=== PATIENT | male | born 1985 | race Caucasian/White ===

== ENCOUNTER 2020-11-30 07:18 | Inpatient (IN) ==
--- NOTE | 2020-11-30 07:57 | Communication Note ---
Date of Service: November 30, 2020 This patient was seen in concert with Dr. Smith and we discussed and agreed upon the history, physical, assessment, and plan. See attending's note for theodora colunga. Resident Activity Tracking Resident Involvement: Resident Care Provided Care Provided: Adult ED
[2020-11-30 08:19] LABS: Hematocrit (blood only) 20.6 % (42-52); Hemoglobin 5.5 g/dL (14.0-18.0); Mean Corpuscular Hemoglobin 17.8 pg (25-34); Mean Corpuscular Hgb Conc 26.7 g/dL (32-36); Mean Corpuscular Volume 66.7 fL (80-100); Mean Platelet Volume 8.7 fL (7.4-10.4); Platelet Count 372 K/uL (130-400); RDW Coefficient of Variation 18.5 % (11.5-14.5); RDW Standard Deviation 44.8 fL (36.4-46.3); Red Blood Count 3.09 M/uL (4.7-6.1); White Blood Count 4.57 K/uL (4.8-10.8)
[2020-11-30] MEDS ORDERED: SODIUM CHLORIDE 0.9% 250 ML IV PRN ×2 (08:21→10:39)
[2020-11-30 08:22] LABS: Alanine Aminotransferase 24 U/L (12-78); Albumin Level 3.8 gm/dl (3.4-5.0); Aspartate Aminotransferase 11 U/L (15-37); BUN Creatinine Ratio 15.4 (10-20); Blood Urea Nitrogen 13 mg/dl (7-18); Calcium 8.4 mg/dl (8.5-10.1); Carbon Dioxide 23 mmol/L (21-32); Chloride 112 mmol/L (98-107); Creatinine Clr Calc Pharmacy 183.8 ml/min; Est GFR (African American) 131.1 ml/min; Est GFR (Non-African American) 113.1 ml/min; Glucose 97 mg/dl (70-99); Potassium 4.2 mmol/L (3.5-5.1); Sodium 140 mmol/L (136-145)
[2020-11-30 08:27] LABS: Albumin Globulin Ratio 1.2 (0.9-2); Alkaline Phosphatase 85 U/L (45-117); Bilirubin,Total 0.5 mg/dl (0.2-1); Globulin 3.2 gm/dl (2.5-4.0); Troponin I < 0.015 ng/ml (0-0.045)
[2020-11-30 08:27] LABS: Basophils # (auto) 0.02 K/uL (0-0.2); Basophils % (auto) 0.4 %; Eosinophils # (auto) 0.41 K/uL (0-0.5); Hypochromasia Present; Immature Granulocytes # (auto) 0.02 K/uL (0.00-0.02); Immature Granulocytes % (auto) 0.4 %; Lymphocytes # (auto) 1.14 K/uL (1.2-3.4); Lymphocytes % (auto) 24.9 %; Microcytosis Present; Monocytes # (auto) 0.44 K/uL (0.11-0.59); Monocytes % (auto) 9.6 %; Neutrophils # (auto) 2.54 K/uL (1.4-6.5); Neutrophils % (auto) 55.7 %; Polychromasia 1+
--- NOTE | 2020-11-30 08:29 | Emergency Department Note ---
History of Present Illness General Chief complaint: Referred by Doctor Stated complaint: DR JUAREZ - BLOOD TRANSFUSION Time Seen by Provider: 11/30/20 07:34 Source: patient Mode of arrival: ambulatory Limitations: no limitations History of Present Illness Provider complaint: Anemia Maximum Pain Intensity: 5 This is a 35-year-old male who presents to the ED with a chief complaint of anemia. The patient states that he had blood work done yesterday and was called today to come to the hospital for a hemoglobin of 5.4. The patient has had recent exertional fatigue as well as dyspnea. He states that he has had the symptoms for a couple of weeks. Denied any chest pains, recent bleeding or b lood in his stools. No black stools. The patient states that he had Covid back in July. He also had a left flank pain a couple of weeks ago. The patient has no additional complaints at this time. Home Medications Medication Instructions Recorded Confirmed Type No Known Home Medications 11/30/20 11/30/20 History Allergies Allergy/AdvReac Type Severity Reaction Status Date / Time No Known Allergies Allergy Unverified 11/30/20 08:27 Past Med/Surg History Social History Smoking Status: Never smoker Preferred Language: Telugu Feels Safe at Home: Yes Review of Systems A total of 10 systems reviewed and were otherwise negative Physical Exam Vital Signs Vital Signs - 24 hr 11/30/20 07:23 11/30/20 08:26 11/30/20 08:30 Temperature 36.4 C L Temperature Source Temporal Artery Scan Pulse Rate 88 90 92 H Pulse Rate from SpO2 Sensor 90 92 H Respiratory Rate 18 24 28 H Respiratory Effort / Characteristics Non-Labored Spontaneous Respiratory Depth Normal Respiratory Pattern Regular Blood Pressure 152/92 H Blood Pressure Mean 112 Blood Pressure Position Sitting Pulse Oximetry 100 99 100 Oxygen Delivery Method Room Air Sepsis Recent Fever Within 48 Hours No Sepsis New/Unexplained Change in Mental Status N/A Sepsis Action Taken by Nursing No Action Required CONSTITUTIONAL/VITAL SIGNS: Reviewed / noted above. GENERAL: Non-toxic in appearance. INTEGUMENTARY: Warm, dry, and pale. HEAD: Normocephalic. EYES: without scleral icterus or trauma. ENT/OROPHARYNX: clear and moist. LYMPHADENOPATHY/NECK: Is supple without lymphadenopathy or meningismus. RESPIRATORY: Lungs clear and equal. CARDIOVASCULAR: Regular rate and rhythm. GI/ABDOMEN: Soft and nontender. No organomegaly or pulsatile mass. No rebound or guarding. Normal bowel sounds. EXTREMITIES: Warm and well perfused. BACK: No CVA tenderness. NEUROLOGICAL: Intact without focal deficits. PSYCHIATRIC: normal affect. MUSCULOSKELETAL: Normally developed with good muscle tone. RECTAL: Guaiac testing of stool is guaiac negative and light brown TRIAGE NURSING DOCUMENTATION REVIEWED. Course Administered Medications Discontinued Medications Ioversol (Optiray 320 150ml) 90 ml IV ONCE ONE Stop: 11/30/20 08:39 Last Admin: 11/30/20 08:39 Dose: 90 ml Documented by: [id number] Critical Care Time Critical Care Time: Yes Total Critical Care Time: 30 I have personally spent 30 minutes of critical care time in the direct management of this patient. This includes bedside care, interpretation of diagnostic studies, and testing, discussion with consultants, patient, and family members, and other required patient management activities. This 30 minutes is in excess of all separately billable procedures. Medical Decision Making Differential Diagnosis Differential includes acute coronary syndrome, myocardial infarction, CVA, TIA, anemia, infection, pneumonia, UTI, pyelonephritis, poor nutrition, dehydration, electrolyte disturbance,hypoglycemia. Medical Records Attestation: I reviewed the patient's medical records. Home Medications Current Medication List: was personally reviewed by me Laboratory Data Attestation: I reviewed the patient's lab results. Result diagrams: 11/30/20 07:42 11/30/20 07:50 Lab Results 11/30/20 11/30/20 11/30/20 Range/Units 07:42 07:42 07:50 WBC 4.57 L (4.8-10.8) K/uL RBC 3.09 L (4.7-6.1) M/uL Hgb 5.5 L* (14.0-18.0) g/dL Hct 20.6 L* (42-52) % MCV 66.7 L (80-100) fL MCH 17.8 L (25-34) pg MCHC 26.7 L (32-36) g/dL RDW Std Deviation 44.8 (36.4-46.3) fL RDW Coeff of Domonique 18.5 H (11.5-14.5) % Plt Count 372 (130-400) K/uL MPV 8.7 (7.4-10.4) fL Immature Gran % (Auto) 0.4 % Neut % (Auto) 55.7 % Lymph % (Auto) 24.9 % [place] % (Auto) 9.6 % Eos % (Auto) 9.0 % Baso % (Auto) 0.4 % Neut # (Auto) 2.54 (1.4-6.5) K/uL Lymph # (Auto) 1.14 L (1.2-3.4) K/uL [place] # (Auto) 0.44 (0.11-0.59) K/uL Eos # (Auto) 0.41 (0-0.5) K/uL Baso # (Auto) 0.02 (0-0.2) K/uL Immature Gran # (Auto) 0.02 (0.00-0.02) K/uL Polychromasia 1+ Hypochromasia Present Microcytosis Present Sodium (136-145) mmol/L Potassium (3.5-5.1) mmol/L Chloride (98-107) mmol/L Carbon Dioxide (21-32) mmol/L Anion Gap (3-11) BUN (7-18) mg/dl Creatinine (0.6-1.4) mg/dl Est Cr Clr Drug Dosing ml/min Est GFR ( Amer) ml/min Est GFR (Non-Af Amer) ml/min BUN/Creatinine Ratio (10-20) Glucose (70-99) mg/dl Calcium (8.5-10.1) mg/dl Total Bilirubin Cancelled Direct Bilirubin Cancelled AST Cancelled ALT Cancelled Alkaline Phosphatase Cancelled Troponin I Cancelled Total Protein Cancelled Albumin Cancelled Globulin (2.5-4.0) gm/dl Albumin/Globulin Ratio (0.9-2) COVID-19 Eval Order Blood Type O Positive Blood Type Recheck Antibody Screen NEGATIVE Crossmatch See Detail 11/30/20 11/30/20 11/30/20 Range/Units 07:50 08:46 08:52 WBC (4.8-10.8) K/uL RBC (4.7-6.1) M/uL Hgb (14.0-18.0) g/dL Hct (42-52) % MCV (80-100) fL MCH (25-34) pg MCHC (32-36) g/dL RDW Std Deviation (36.4-46.3) fL RDW Coeff of Domonique (11.5-14.5) % Plt Count (130-400) K/uL MPV (7.4-10.4) fL Immature Gran % (Auto) % Neut % (Auto) % Lymph % (Auto) % [place] % (Auto) % Eos % (Auto) % Baso % (Auto) % Neut # (Auto) (1.4-6.5) K/uL Lymph # (Auto) (1.2-3.4) K/uL [place] # (Auto) (0.11-0.59) K/uL Eos # (Auto) (0-0.5) K/uL Baso # (Auto) (0-0.2) K/uL Immature Gran # (Auto) (0.00-0.02) K/uL Polychromasia Hypochromasia Microcytosis Sodium 140 (136-145) mmol/L Potassium 4.2 (3.5-5.1) mmol/L Chloride 112 H (98-107) mmol/L Carbon Dioxide 23 (21-32) mmol/L Anion Gap 6.0 (3-11) BUN 13 (7-18) mg/dl Creatinine 0.86 (0.6-1.4) mg/dl Est Cr Clr Drug Dosing 183.8 ml/min Est GFR ( Amer) 131.1 ml/min Est GFR (Non-Af Amer) 113.1 ml/min BUN/Creatinine Ratio 15.4 (10-20) Glucose 97 (70-99) mg/dl Calcium 8.4 L (8.5-10.1) mg/dl Total Bilirubin 0.5 Direct Bilirubin AST 11 L ALT 24 Alkaline Phosphatase 85 Troponin I < 0.015 Total Protein 7.0 Albumin 3.8 Globulin 3.2 (2.5-4.0) gm/dl Albumin/Globulin Ratio 1.2 (0.9-2) COVID-19 Eval Order Covid19 at [facility] Blood Type Blood Type Recheck O Positive Antibody Screen Crossmatch Imaging Data Attestation: I personally reviewed and interpreted this imaging study as follows: My Impression: Chest x-ray: Per my interpretation is negative for acute disease Radiologist's Impression: Abdomen/Pelvis CT 11/30/20 08:21 CT abd pelvis IV con only CLINICAL HISTORY: unexplained anemia COMPARISON STUDY: None. TECHNIQUE: A dose lowering technique was utilized adhering to the principles of ALARA. CT DOSE: 1845.89 mGy.cm FINDINGS: Lower chest: The heart is normal in size and configuration, without pericardial effusion. The lung bases and pleural spaces are clear. Large hiatal hernia is seen. Liver: The contrast-enhanced liver is normal in size, contour, and attenuation. There is no intrahepatic biliary ductal dilatation. The hepatic veins and portal veins are patent. Gallbladder: Unremarkable. Spleen: Normal in size and attenuation. Pancreas: Unremarkable. Adrenal glands: Unremarkable. Kidneys: There is symmetric renal cortical enhancement. The kidneys are normal in size without hydronephrosis. Bowel: The small bowel and colon are normal in course and caliber. Appendix is not well seen. Peritoneum: There is no intraperitoneal free air or abdominal ascites. Vasculature: The abdominal aorta is normal in course and caliber. Adenopathy: None. Pelvic viscera: Urinary bladder is partially decompressed with minimal diffuse thickening of its wall and no surrounding inflammatory changes. Prostate gland is not enlarged. Small bilateral fat-containing inguinal hernias are seen. Skeletal structures: Mild multilevel degenerative changes within lower thoracic spine. IMPRESSION: 1. Large hiatal hernia. 2. No acute intra-abdominal process. 3. Degenerative changes of the spine. ACT 112: Negative or not required by law. The above report was generated using voice recognition software. It may contain grammatical, syntax or spelling errors. Electronically signed by: Krista Herrera DO 11/30/2020 9:01 AM ECG Data Attestation: I personally reviewed and interpreted this ECG as follows: Indication: + weakness Rate (beats per minute): 68 Rhythm: + normal sinus ECG Intervals/blocks: + Normal QT-c ECG ST segments: no ST elevation ECG Findings: no PVCs MDM Narrative Patient presents with anemia and associated fatigue and shortness of breath with exertion. Guaiac testing of the stool was negative. Exam reveals pale skin but otherwise no acute abnormalities. Hemoglobin today is 5.5. White blood cell count is slightly low but near normal. Platelet count is normal. Patient's chemistry panel was unremarkable. Troponin was negative. Chest x-ray did not show acute process. CT scan of the abdomen pelvis reveals a hiatal hernia but otherwise nothing acute. The patient was typed and crossed and will be transfused 1 unit of blood in the ED. We did speak with the hospitalist, who will see the patient for further inpatient evaluation and care. Impression & Plan Anemia, Exertional dyspnea, Fatigue Discharge Plan Visit Data Chief Complaint: Referred by Doctor Stated Complaint: DR REF - BLOOD TRANSFUSION ED Provider: Perico Smith ED Midlevel Provider: Nick Carrion Discharge Problem: Anemia, Exertional dyspnea, Fatigue Patient Disposition: Admitted As Inpatient Forms Stand Alone Forms: [facility] [employer] Prescriptions Prescriptions: No Action No Known Home Medications RF: 0 Referrals Referrals: Alejandro Wallis MD [Primary Care Provider] -
[2020-11-30] MEDS ORDERED: OPTIRAY 320 150ml IV ONE (08:38)
--- NOTE | 2020-11-30 09:03 | CT Scan Report ---
CT abd pelvis IV con only CLINICAL HISTORY: unexplained anemia COMPARISON STUDY: None. TECHNIQUE: A dose lowering technique was utilized adhering to the principles of ALARA. CT DOSE: 1845.89 mGy.cm FINDINGS: Lower chest: The heart is normal in size and configuration, without pericardial effusion. The lung ba ses and pleural spaces are clear. Large hiatal hernia is seen. Liver: The contrast-enhanced liver is normal in size, contour, and attenuation. There is no intrahepa tic biliary ductal dilatation. The hepatic veins and portal veins are patent. Gallbladder: Unremarkable. Spleen: Normal in size and attenuation. Pancreas: Unremarkable. Adrenal glands: Unremarkable. Kidneys: There is symmetric renal cortical enhancement. The kidneys are normal in size without hydron ephrosis. Bowel: The small bowel and colon are normal in course and caliber. Appendix is not well seen. Peritoneum: There is no intraperitoneal free air or abdominal ascites. Vasculature: The abdominal aorta is normal in course and caliber. Adenopathy: None. Pelvic viscera: Urinary bladder is partially decompressed with minimal diffuse thickening of its wall and no surrounding inflammatory changes. Prostate gland is not enlarged. Small bilateral fat-containing inguinal hernias are seen. Skeletal structures: Mild multilevel degenerative changes within lower thoracic spine. IMPRESSION: 1. Large hiatal hernia. 2. No acute intra-abdominal process. 3. Degenerative changes of the spine. ACT 112: Negative or not required by law. The above report was generated using voice recognition software. It may contain grammatical, syntax o r spelling errors. Electronically signed by: Krista Herrera DO 11/30/2020 9:01 AM
--- NOTE | 2020-11-30 09:08 | History & Physical Report ---
Date of Service November 30, 2020 Assessment & Plan (1) Severe anemia: This is a 35-year-old male with no known past medical history who presents due to abnormal lab work from clinic yesterday showing severe anemia with hemoglobin of 5. Severe symptomatic microcytic anemia sent in from clinic for further evaluation Hgb 5.5, hct 20.6 Hemodynamically stable Consented, type and crossed - receiving 1u prbc now with an additional ordered Repeat H&H this afternoon Retic count, iron studies, B12, folate, FOBT, peripheral smear pending IV protonix BID Routine GI consult DVT Ppx: teds, early ambulation Code status: FULL PCP: Kadi Dispo: Admitted to PCU Patient seen in collaboration with Dr. Stone. Please see addendum. History of Present Illness Chief Complaint: Symptomatic anemia Primary Care Provider: Alejandro Wallis MD This is a 35-year-old male with no known past medical history who presents due to abnormal lab work from clinic yesterday showing severe anemia with hemoglobin of 5. Was directed to come to the ED for further evaluation. Patient has been feeling rundown and unable to catch his breath for the past few weeks. Initially attributed to Covid back in July followed by bronchitis treated with prednisone and a Z-Macario this spring but continued to feel weak despite respiratory status improving. Had left flank pain a few weeks ago that he attributes to kidney stones it is completely resolved. Feels lightheaded with positional change and endorses fatigue and palpitations. Denies any bright red blood or black stools. No blood in urine. No history of anemia in the past. Previously drinking 3-4 beers daily with more on the weekends but decreased alcohol use to a few times a week 3 months ago. Denies any smoking. Ibuprofen use a few times per week. No known GI issues in the past such as diverticulitis or ulcers. Does not take any home medications. No known tick bites. Denies any fever, chills, visual changes, chest pain, nausea, vomiting, abdominal pain, dysuria, diarrhea constipation. Allergies Allergy/AdvReac Type Severity Reaction Status Date / Time No Known Allergies Allergy Unverified 11/30/20 08:27 Home Medications Medication Instructions Recorded Confirmed Type No Known Home Medications 11/30/20 11/30/20 History Past Med/Surg History Medical History No significant past medical history Surgical History H/O hand surgery Family History Other Heart disease Social History (Updated 11/30/20 @ 10:36 by Giulia Nam PA-C) Smoking Status: Never smoker Hx Alcohol Use: Yes Alcohol type: beer Alcohol Intake Frequency: 2-3 x/Week Hx Substance Use: No Preferred Language: Welsh Beliefs That Will Affect Care: None Current Living Situation: Family Feels Safe at Home: Yes Assistive Devices: Glasses Review of Systems Review of Systems: At least ten systems reviewed and negative except as noted in the HPI. Physical Exam Physical Exam: General Appearance: WD/WN, vitals as above, NAD, sitting up in bed, pleasant, conversing easily, obese Head: normocephalic, atraumatic Eyes: normal inspection, PERRL, conjunctivae normal, anicteric sclerae ENT: external ear and nose normal, oropharynx normal Neck: normal visual inspection, trachea midline, no thyromegaly Respiratory: normal respiratory effort, lungs clear to auscultation, no wheeze, rales, rhonchi. No accessory muscle use Cardiovascular: tachycardic, regular rhythm, no murmur, normal peripheral pulses, no BLE edema. Vessels: no JVD Chest: normal inspection of chest Abdomen/GI: normal bowel sounds, soft, nontender, no hepatosplenomegaly Extremities/Musculoskeletal: no cyanosis or clubbing, extremities motor strength 5/5 Neurologic: PERRL, EOMI, accommodation nl, no face palsy, no dysarthria, CN's II-XI intact bilaterally and moves all extremities Psychiatric: A+Ox3, euthymic affect Skin: no rashes, warm/dry, + pale Results & Data Results & Data ([facility]) Vital Signs (Past 12 Hours) Vital Signs Temp Pulse Resp BP Pulse Ox 11/30/20 08:30 92 H 28 H 100 11/30/20 08:26 90 24 99 11/30/20 07:23 36.4 C L 88 18 152/92 H 100 Laboratory Results Short CBC 11/30/20 Range/Units 07:42 WBC 4.57 L (4.8-10.8) K/uL Hgb 5.5 L* (14.0-18.0) g/dL Hct 20.6 L* (42-52) % Plt Count 372 (130-400) K/uL BMP 11/30/20 07:50 Sodium 140 Potassium 4.2 Chloride 112 H Carbon Dioxide 23 BUN 13 Creatinine 0.86 Glucose 97 Calcium 8.4 L Cardiac Enzymes 11/30/20 11/30/20 Range/Units 07:42 07:50 Troponin I Cancelled < 0.015 Liver Function 11/30/20 11/30/20 Range/Units 07:42 07:50 Total Bilirubin Cancelled 0.5 Direct Bilirubin Cancelled AST Cancelled 11 L ALT Cancelled 24 Alkaline Phosphatase Cancelled 85 Albumin Cancelled 3.8 Diagnostic Findings Abdomen/Pelvis CT 11/30/20 08:21 CT abd pelvis IV con only CLINICAL HISTORY: unexplained anemia COMPARISON STUDY: None. TECHNIQUE: A dose lowering technique was utilized adhering to the principles of ALARA. CT DOSE: 1845.89 mGy.cm FINDINGS: Lower chest: The heart is normal in size and configuration, without pericardial effusion. The lung bases and pleural spaces are clear. Large hiatal hernia is seen. Liver: The contrast-enhanced liver is normal in size, contour, and attenuation. There is no intrahepatic biliary ductal dilatation. The hepatic veins and portal veins are patent. Gallbladder: Unremarkable. Spleen: Normal in size and attenuation. Pancreas: Unremarkable. Adrenal glands: Unremarkable. Kidneys: There is symmetric renal cortical enhancement. The kidneys are normal in size without hydronephrosis. Bowel: The small bowel and colon are normal in course and caliber. Appendix is not well seen. Peritoneum: There is no intraperitoneal free air or abdominal ascites. Vasculature: The abdominal aorta is normal in course and caliber. Adenopathy: None. Pelvic viscera: Urinary bladder is partially decompressed with minimal diffuse thickening of its wall and no surrounding inflammatory changes. Prostate gland is not enlarged. Small bilateral fat-containing inguinal hernias are seen. Skeletal structures: Mild multilevel degenerative changes within lower thoracic spine. IMPRESSION: 1. Large hiatal hernia. 2. No acute intra-abdominal process. 3. Degenerative changes of the spine. ACT 112: Negative or not required by law. The above report was generated using voice recognition software. It may contain grammatical, syntax or spelling errors. Electronically signed by: Krista StewartDO jj 11/30/2020 9:01 AM Supervising Physician Co-Signing Physician Notes Patient is a 35-year-old male with no significant medical history presents with history of abnormal blood work suggesting symptomatic anemia. Patient admits to having generalized weakness, tiredness, dyspnea on exertion since last few weeks. He denies any bleeding issues, melena, hematuria, epistaxis. Please review HPI for complete details of presentation. He was found to have hemoglobin 5.5, hematocrit 20.6. Iron panel suggestive of iron deficiency anemia. Peripheral smear consistent with iron deficiency anemia. Patient admits that he is father had iron deficiency anemia as well. TSH is within nor mal limits. Urine analysis not suggestive of hematuria. CT abdomen showed large hiatal hernia but otherwise no acute intra abdominal process. Patient is obese, no apparent distress, normocephalic atraumatic, lungs are clear to auscultation, normal breath sounds, S1-S2, no murmur, no pedal edema, abdomen soft, nontender, normal bowel sounds, alert, awake, oriented, grossly no focal neurological deficits. Patient is admitted for management of symptomatic anemia, secondary to iron deficiency. Was transfused 2 units PRBCs. Monitor H&H and transfuse as needed. Will check fecal occult. Vitamin B12, folic acid levels normal. Started on IV Protonix. We will also start on iron supplements. Will recommend follow-up with hematology as outpatient. I personally reviewed the record. Patient is interviewed and examined at bedside. Patient's care is coordinated with Giulia Nam PA-C. Please refer to the documentation above for details of patient's presentation and for discussion of other issues.
--- NOTE | 2020-11-30 09:21 | XRay Report ---
SINGLE VIEW CHEST CLINICAL HISTORY: Anemia. FINDINGS: 2 AP, portable, upright chest radiographs are obtained. No prior studies are available for comparison at the time of dictation. The examination is degraded by portable technique and apical paola dotic positioning. A hiatal hernia is noted. The cardiomediastinal silhouette is unremarkable. The annie ngs and pleural spaces are clear. No pneumothorax is seen. The bony thorax is grossly intact. IMPRESSION: No active disease in the chest. ACT 112: Negative or not required by law. Electronically signed by: Bijan Rashid M.D. 11/30/2020 9:19 AM
[2020-11-30] MEDS ORDERED: PANTOprazole 40 MG in SYRINGE 0 ML IV SCH (09:30)
[2020-11-30 09:49] LABS: Ferritin 1.5 ng/ml (8-388); Thyroid Stimulating Hormone 1.93 uIu/ml (0.300-4.500)
[2020-11-30 10:22] LABS: Reticulocyte % 4.2 % (0.5-2.0); Reticulocytes # 0.13 10^6/uL (0.02-0.10)
[2020-11-30] MEDS ORDERED: ONDANSETRON INJ 2 MG/ML 2 ML VIAL IV PRN (10:39)
[2020-11-30 12:33] LABS: Folate (Folic Acid) 16.9 ng/ml (>5.38)
--- NOTE | 2020-11-30 12:57 | Electrocardiogram Report ---
Test Reason : Blood Pressure : / mmHG Vent. Rate : 087 BPM Atrial Rate : 087 BPM P-R Int : 160 ms QRS Dur : 100 ms QT Int : 348 ms P-R-T Axes : 026 025 -01 degrees QTc Int : 418 ms Normal sinus rhythm Normal ECG No previous ECGs available Confirmed by Luis Miguel Browne ([id number]) on 11/30/2020 12:56:41 PM Referred By: Donn Smiht Confirmed By:Luis Miguel Browne
[2020-11-30 14:28] LABS: Appearance Urine Clear (Clear); Bilirubin Urine Negative (Negative); Blood Urine Negative (Negative); Color Urine Yellow; Glucose Urine UA Negative (Negative); Ketones Urine Negative (Negative); Leukocyte Esterase Urine Negative (Negative); Nitrite Urine Negative (Negative); Protein Urine Negative (Negative); Specific Gravity Urine > 1.045 (1.000-1.030); Urobilinogen Urine Negative (Negative)
[2020-11-30] MEDS: FERROUS SULFATE 325 MG TAB PO SCH (17:38)
[2020-11-30 19:04] LABS: Hemoglobin 7.3 g/dL (14.0-18.0)
[2020-11-30] MEDS ORDERED: IRON SUCROSE 200 MG in 0.9 % SODIUM CHLORIDE 100 ML IV ONE (20:00)
[2020-12-01 05:55] LABS: Hematocrit (blood only) 24.6 % (42-52); Hemoglobin 7.2 g/dL (14.0-18.0); Mean Corpuscular Hemoglobin 20.4 pg (25-34); Mean Corpuscular Hgb Conc 29.3 g/dL (32-36); Mean Corpuscular Volume 69.7 fL (80-100); Mean Platelet Volume 8.7 fL (7.4-10.4); Nucleated RBC # (auto) 0.04 K/uL (0-0); Platelet Count 324 K/uL (130-400); RDW Coefficient of Variation 20.2 % (11.5-14.5); RDW Standard Deviation 51.2 fL (36.4-46.3); Red Blood Count 3.53 M/uL (4.7-6.1)
[2020-12-01 06:36] LABS: BUN Creatinine Ratio 10.1 (10-20); Calcium 8.6 mg/dl (8.5-10.1); Creatinine Clr Calc Pharmacy 192.8 ml/min; Est GFR (African American) 133.7 ml/min; Est GFR (Non-African American) 115.4 ml/min
[2020-12-01] MEDS: FERROUS SULFATE 325 MG TAB PO SCH ×2 (09:06→17:59)
[2020-12-01] MEDS: PANTOprazole 40 MG in SYRINGE 0 ML IV SCH (09:18)
[2020-12-01 16:32] LABS: Hematocrit (blood only) 26.5 % (42-52); Hemoglobin 7.7 g/dL (14.0-18.0)
--- NOTE | 2020-12-01 17:14 | Hospitalist Progress Note ---
Date of Service December 01, 2020 Assessment & Plan (1) Severe anemia: Patient is a 35 yr male with H/O Abnormal lab work from clinic showing severe anemia with hemoglobin of 5. Symptomatic anemia Iron deficiency anemia R/O celiac Disease S/P [address] ABD:Large hiatal hernia. No acute intra-abdominal process. Degenerative changes of the spine. Peripheral smear: Consistent with microcytic anemia, iron deficiency anemia. Morphologic features of hemolytic anemia or MDS/MPN not found Iron Panel: Consistent with iron deficiency anemia Vitamin B12, folic acid levels normal Immunological work-up for celiac disease pending Patient denies any bleeding issues, melena, PUD, Diverticulosis, polyps, hemorrhoids FOBT:pending Received IV Venofer Continue Iron Supplements Monitor CBC Discussed with GI. GI to arrange for EGD, colonoscopy as outpatient Advice to minimize alcohol use to avoid more marrow suppression Also advised to avoid NSAIDs Continue PPI DVT Px: Teds Encourage to ambulate Code status: FULL CODE Disposition Expected discharge home when medically stable Admission and Anticipated Discharge Date Admission Date: November 30, 2020 Subjective Patient is seen and examined at bedside Dyspnea on exertion improving Denies any bleeding issues Discussed with GI today States feeling better today Denies chest pain, dizziness, nausea, abdominal pain Offers no other complaints Review of Systems Review of Systems: All systems reviewed & are unremarkable except as noted in HPI & below Physical Exam Physical Exam: Physical Exam: Vitals signs as noted above General Appearance:Obese, no apparent distress Head: normocephalic, Atraumatic Eyes: normal inspection, EOMI, Pallor Neck: supple, Trachea midline Respiratory/Chest: Normal breath sounds, CTA Cardiovascular: S1, S2, No murmur Abdomen/GI:Soft, Non tender, Bowel sounds present Extremities/Musculoskeletal:normal inspection, no edema Neurologic/Psych:AAOX3, grossly no focal neurological deficits Skin: normal color, warm Results & Data Results & Data ([facility]) Vital Signs (Past 12 Hours) Vital Signs Temp Pulse Pulse Resp BP Pulse Ox 12/01/20 16:16 36.6 C 92 H 18 135/79 99 12/01/20 12:04 36.6 C 90 18 139/85 97 12/01/20 08:11 36.4 C L 81 18 124/80 96 12/01/20 08:00 72 Laboratory Results Short CBC 11/30/20 12/01/20 12/01/20 Range/Units 18:41 05:43 16:16 WBC 4.40 L (4.8-10.8) K/uL Hgb 7.3 L 7.2 L 7.7 L (14.0-18.0) g/dL Hct 25.0 L 24.6 L 26.5 L (42-52) % Plt Count 324 (130-400) K/uL BMP 12/01/20 05:43 Sodium 141 Potassium 4.0 Chloride 111 H Carbon Dioxide 23 BUN 8 D Creatinine 0.82 Glucose 91 Calcium 8.6
[2020-12-01] MEDS ORDERED: IRON SUCROSE 200 MG in 0.9 % SODIUM CHLORIDE 100 ML IV ONE (20:00)
[2020-12-02 07:12] LABS: Hematocrit (blood only) 27.9 % (42-52); Hemoglobin 7.9 g/dL (14.0-18.0); Mean Corpuscular Hemoglobin 20.2 pg (25-34); Mean Corpuscular Hgb Conc 28.3 g/dL (32-36); Mean Corpuscular Volume 71.4 fL (80-100); Mean Platelet Volume 8.6 fL (7.4-10.4); Nucleated RBC # (auto) 0.09 K/uL (0-0); Nucleated RBC % (auto) 1.5 %; Platelet Count 372 K/uL (130-400); RDW Coefficient of Variation 21.4 % (11.5-14.5); RDW Standard Deviation 53.8 fL (36.4-46.3); Red Blood Count 3.91 M/uL (4.7-6.1); White Blood Count 6.35 K/uL (4.8-10.8)
[2020-12-02 07:34] LABS: BUN Creatinine Ratio 13.6 (10-20); Calcium 8.7 mg/dl (8.5-10.1); Creatinine Clr Calc Pharmacy 184.9 ml/min; Est GFR (African American) 131.8 ml/min; Est GFR (Non-African American) 113.7 ml/min; Potassium 4.1 mmol/L (3.5-5.1)
[2020-12-02] MEDS: FERROUS SULFATE 325 MG TAB PO SCH (08:42)
[2020-12-02] MEDS: PANTOprazole 40 MG in SYRINGE 0 ML IV SCH (08:42)
--- NOTE | 2020-12-02 12:13 | Hospitalist Progress Note ---
Date of Service December 02, 2020 Assessment & Plan (1) Severe anemia: Patient is a 35 yr male with H/O Abnormal lab work from clinic showing severe anemia with hemoglobin of 5. Symptomatic anemia Iron deficiency anemia R/O celiac Disease S/P [address] ABD:Large hiatal hernia. No acute intra-abdominal process. Degenerative changes of the spine. Peripheral smear: Consistent with microcytic anemia, iron deficiency anemia. Morphologic features of hemolytic anemia or MDS/MPN not found Iron Panel: Consistent with iron deficiency anemia Vitamin B12, folic acid levels normal Immunological work-up for celiac disease pending Patient denies any bleeding issues, melena, PUD, Diverticulosis, polyps, hemorrhoids FOBT:Negative in ED Received IV Venofer Continue Iron Supplements Monitor CBC Discussed with GI. GI to arrange for EGD, colonoscopy as outpatient Advice to minimize alcohol use to avoid more marrow suppression Also advised to avoid NSAIDs Continue PPI Hb stable DVT Px: Teds Encourage to ambulate Code status: FULL CODE Disposition Home Admission and Anticipated Discharge Date Admission Date: November 30, 2020 Subjective Patient is seen and examined at bedside States feeling well today Offers no new complaints Dyspnea on exertion resolved Denies any bleeding issues Updated patient's family over the phone Denies chest pain, dizziness, nausea, abdominal pain Offers no other complaints Review of Systems Review of Systems: All systems reviewed & are unremarkable except as noted in HPI & below Physical Exam Physical Exam: Physical Exam: Vitals signs as noted above General Appearance:Obese, no apparent distress Head: normocephalic, Atraumatic Eyes: normal inspection, EOMI, Pallor Neck: supple, Trachea midline Respiratory/Chest: Normal breath sounds, CTA Cardiovascular: S1, S2, No murmur Abdomen/GI:Soft, Non tender, Bowel sounds present Extremities/Musculoskeletal:normal inspection, no edema Neurologic/Psych:AAOX3, grossly no focal neurological deficits Skin: normal color, warm Results & Data Results & Data ([facility]) Vital Signs (Past 12 Hours) Vital Signs Temp Pulse Pulse Resp BP BP Pulse Ox 12/02/20 11:32 36.7 C 86 16 133/75 97 12/02/20 08:30 69 12/02/20 07:31 36.8 C 82 18 121/79 96 12/02/20 03:41 36.5 C 73 18 129/76 96 Laboratory Results Short CBC 12/01/20 12/02/20 Range/Units 16:16 06:47 WBC 6.35 (4.8-10.8) K/uL Hgb 7.7 L 7.9 L (14.0-18.0) g/dL Hct 26.5 L 27.9 L (42-52) % Plt Count 372 (130-400) K/uL [facility] 12/02/20 06:47 Sodium 140 Potassium 4.1 Chloride 110 H Carbon Dioxide 24 BUN 12 Creatinine 0.85 Glucose 91 Calcium 8.7
--- NOTE | 2020-12-02 12:31 | Discharge Summary ---
Date of Service December 02, 2020 Admission HPI Per Admitting Provider This is a 35-year-old male with no known past medical history who presents due to abnormal lab work from clinic yesterday showing severe anemia with hemoglobin of 5. Was directed to come to the ED for further evaluation. Patient has been feeling rundown and unable to catch his breath for the past few weeks. Initially attributed to Covid back in July followed by bronchitis treated with prednisone and a Z-Macario this spring but continued to feel weak despite respiratory status improving. Had left flank pain a few weeks ago that he attributes to kidney stones it is completely resolved. Feels lightheaded with positional change and endorses fatigue and palpitations. Denies any bright red blood or black stools. No blood in urine. No history of anemia in the past. Previously drinking 3-4 beers daily with more on the weekends but decreased alcohol use to a few times a week 3 months ago. Denies any smoking. Ibuprofen use a few times per week. No known GI issues in the past such as diverticulitis or ulcers. Does not take any home medications. No known tick bites. Denies any fever, chills, visual changes, chest pain, nausea, vomiting, abdominal pain, dysuria, diarrhea constipation. Admission Exam Per Admitting Provider Physical Exam Physical Exam: General Appearance: WD/WN, vitals as above, NAD, sitting up in bed, pleasant, conversing easily, obese Head: normocephalic, atraumatic Eyes: normal inspection, PERRL, conjunctivae normal, anicteric sclerae ENT: external ear and nose normal, oropharynx normal Neck: normal visual inspection, trachea midline, no thyromegaly Respiratory: normal respiratory effort, lungs clear to auscultation, no wheeze, rales, rhonchi. No accessory muscle use Cardiovascular: tachycardic, regular rhythm, no murmur, normal peripheral pulses, no BLE edema. Vessels: no JVD Chest: normal inspection of chest Abdomen/GI: normal bowel sounds, soft, nontender, no hepatosplenomegaly Extremities/Musculoskeletal: no cyanosis or clubbing, extremities motor strength 5/5 Neurologic: PERRL, EOMI, accommodation nl, no face palsy, no dysarthria, CN's II-XI intact bilaterally and moves all extremities Psychiatric: A+Ox3, euthymic affect Skin: no rashes, warm/dry, + pale Principal Diagnosis Symptomatic anemia Iron deficiency anemia Discharge Data Allergies Allergy/AdvReac Type Severity Reaction Status Date / Time No Known Allergies Allergy Unverified 11/30/20 08:27 Consultations 11/30/20 08:58 ED Decision to Admit Stat Procedures Performed CT ABD:Large hiatal hernia. No acute intra-abdominal process. Degenerative changes of the spine. Ordered Studies 11/30/20 08:21 CT abd pelvis IV con only Stat Hospital Course (1) Severe anemia: Patient is a 35 yr male with H/O Abnormal lab work from clinic showing severe anemia with hemoglobin of 5. Symptomatic anemia Iron deficiency anemia R/O celiac Disease S/P [address] ABD:Large hiatal hernia. No acute intra-abdominal process. Degenerative changes of the spine. Peripheral smear: Consistent with microcytic anemia, iron deficiency anemia. Morphologic features of hemolytic anemia or MDS/MPN not found Iron Panel: Consistent with iron deficiency anemia Vitamin B12, folic acid levels normal Immunological work-up for celiac disease pending Patient denies any bleeding issues, melena, PUD, Diverticulosis, polyps, hemor rhoids FOBT:Negative in ED Received IV Venofer Continue Iron Supplements Monitor CBC Discussed with GI. GI to arrange for EGD, colonoscopy as outpatient Advice to minimize alcohol use to avoid more marrow suppression Also advised to avoid NSAIDs Continue PPI Hb stable DVT Px: Teds Encourage to ambulate Code status: FULL CODE Disposition Home Total Time Total Time Spent Total Time Spent (In Minutes): 40 minutes Total Time Includes: Examination of the Patient, Discharge Planning, Medication Reconciliation, Communication With Other Providers and Other Discharge Plan Discharge Items Patient Disposition: Home - Self-Care Reason For Visit: SYMPTOMATIC ANEMIA Discharge Diagnosis: Symptomatic anemia Iron deficiency anemia Activity: Per Instructions section Exercise/Sports: Wait until after follow-up appointment Non-emergency contact: Primary Care Provider and Cushion Stuffer Call non-emergency contact if: you have any medication questions, your symptoms worsen, your pain is not controlled, your pain is worsening, your pain is concerning for you and you have a fever Follow-up/Referrals: Alejandro Wallis MD [Primary Care Provider] - (Date & Time 12/05/2020 3:00 PM Provider Alejandro Wallis MD Department Family Medicine [facility] ) Diet: Heart Healthy Addtl Attending Provider Instructions: Follow-up with your primary care physician on 12/05/2020 3:00 PM Follow up with your Cushion Stuffer for esophagogastroduodenoscopy, colonoscopy as outpatient as arranged Consider following with your specimen accessioner for further evaluation of significant anemia Your immunological work-up for celiac disease is pending at the time of discharge follow-up with your physician for results. Avoid alcohol use, to minimize myelosuppression as could be contributing to anemia Get repeat Blood test (complete blood count, iron studies) in 1 to 2 weeks and follow-up with your primary care physician with results. Do not take group of medications belonging to NSAIDs group -can cause worsening of your kidney function/gastrointestinal bleeding . List Of these medications includes but not limited to: Aspirin Diclofenac Ibuprofen, Motrin, Advil Toradol,ketorolac Naproxen, Aleve, Naprosyn You can take Tylenol as needed for pain or fever When buying [id number] pain medications please consult with pharmacy if y ou are not sure regarding ingredients, as a lot of the pain medications have combination of NSAIDs and Tylenol. Seek immediate medical attention if your symptoms reoccur or worsen Please take all medications as instructed on discharge list below. Please call if you have any questions or problems. You can reach a [facility] hospitalist on duty at [facility] 24 hours a day by calling [phone] Pending Studies at Discharge: Yes Studies:: Immunological work-up for celiac disease Stand-Alone Forms: My [facility], Smoking Cessation Medications and DC Order Prescriptions: New ferrous sulfate 325 mg (65 mg iron) Tablet,Delayed Release (Dr/Ec) 325 mg PO BIDM Qty: 60 RF: 1 pantoprazole 40 mg Tablet,Delayed Release (Dr/Ec) 40 mg PO QAM Qty: 40 RF: 1 No Action No Known Home Medications RF: 0 Discharge Orders: Discharge Order (Routine); Ordered 12/02/20 Ordered By: Luis Stone Admission Data Admit Date/Time: 11/30/20 09:16 Attending Provider: Luis Stone Admit Provider: Luis Stone Primary Care Provider: Alejandro Wallis Other Providers: Luis Stone Other Interventions: Discharge Summary Assessment (RN) Last Done: 12/02/20 13:53
[2020-12-03] MEDS ORDERED: PANTOprazole 40 MG TAB PO SCH (09:00)
[2020-12-04 23:47] LABS: IgA Serum 107 mg/dL (47-310); Tis Trans IgA 1 U/mL
== END 2020-12-02 14:45 | disposition home or self-care (01) | DRG 812 ==
LOC: ED 07:18 → 2S 09:16